=== PATIENT | male | born 2000 | race Caucasian/White ===

== ENCOUNTER 2019-01-04 12:11 | Emergency (ER) | payer MEDICAID ==
[~2019-01-04] VITALS: Ht 180.3 cm; Wt 50.8 kg
[~2019-01-04 12:11] MED LIST: LAMO200T2 PO
[2019-01-04 12:23] VITALS: BP 109/67
--- NOTE | 2019-01-04 12:34 | NUR ---
Yelitza lambert in [facility] - 01/04/19 at 1251 by LAI kaelyn estevez at bedside for eval.
--- NOTE | 2019-01-04 12:34 | NUR ---
kaelyn kessler at bedside for eval.
[2019-01-04] MEDS ORDERED: ONDANSETRON 4 MG TAB.RAPDIS ONE (12:39)
[2019-01-04] MEDS ORDERED: ASPIRIN 81 MG TAB.CHEW ONE (12:39)
--- NOTE | 2019-01-04 12:45 | NUR ---
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
[2019-01-04 12:51] LABS: EOSINOPHILS % (AUTO) 5.2 % (0.0-6.0); HEMATOCRIT 39 % (39-51); HEMOGLOBIN 13.1 g/dL (13.5-17.5); LYMPHOCYTES # (AUTO) 2.4 /CMM (0.8-4.8); LYMPHOCYTES % (AUTO) 51.1 % (20.0-44.0); MEAN CORPUSCULAR HGB CONC 33 g/dl (31.0-36.0); MEAN CORPUSCULAR VOLUME 85 fL (80-96); MONOCYTES # (AUTO) 0.4 /CMM (0.1-1.30); MONOCYTES % (AUTO) 8.6 % (2.0-12.0); NEUTROPHILS # (AUTO) 1.6 /CMM (1.8-8.9); NEUTROPHILS % (AUTO) 34.1 % (43.0-81.0); PLATELET COUNT (AUTO) 193 /CMM (150-450); RED BLOOD CELL COUNT(AUTO) 4.64 MIL/uL (4.5-6.0); WHITE BLOOD COUNT (AUTO) 4.6 K/uL (4.3-11.0)
[2019-01-04 12:58] LABS: CALCIUM, SERUM 9.6 mg/dL (8.5-10.1); CARBON DIOXIDE 28 mmol/L (21-32); CHLORIDE 104 mmol/L (98-107); CREATININE 1.1 mg/dL (0.6-1.3); GLUCOSE 99 mg/dL (74-106); SODIUM SERUM 139 mmol/L (136-145); UREA NITROGEN, BLOOD 10 mg/dL (7-18)
[2019-01-04] MEDS ORDERED: ONDANSETRON 4 MG TAB.RAPDIS SL ONE (13:00)
[2019-01-04] MEDS ORDERED: ONDANSETRON 4 MG TAB.RAPDIS PO ONE (13:00)
[2019-01-04] MEDS ORDERED: ASPIRIN 81 MG TAB.CHEW PO ONE (13:00)
== END 2019-01-04 14:01 | disposition home or self-care (01) ==
LOC: ER 12:11
DX: R07.89 Other chest pain (principal)
CPT/HCPCS: 36415; 71045; 80048; 84484; 85025; 93005; 99284; Q0162